=== PATIENT | female | born 1960 | race African-American/Black ===

== ENCOUNTER 2021-07-27 09:15 | Outpatient (CLI) | payer OTHER ==
[2021-07-27 09:39] LABS: PLATELET COUNT 254 K/uL (152-353)
== END 2021-07-27 20:01 | disposition home or self-care (01) ==
LOC: LABW 09:15
PROVIDERS: ATTEND Family Medicine
DX: R19.00 Intra-abdominal and pelvic swelling, mass and lump, unspecified site (principal); M25.519 Pain in unspecified shoulder
CPT/HCPCS: 36415; 80053; 85027